=== PATIENT | female | born 1995 | race Caucasian/White ===

== ENCOUNTER 2018-03-10 15:04 | Outpatient (CLI) | payer OTHER ==
[2018-03-10 15:25] LABS: BASOPHILS % (AUTO) 0.3 %; BILIRUBIN,URINE NEGATIVE (NEGATIVE); CLARITY,URINE CLEAR (CLEAR); EOSINOPHILS % (AUTO) 0.4 %; GLUCOSE, URINE (UA) NEGATIVE (NEGATIVE); HGB - HEMOGLOBIN 11.4 g/dL (12.0-16.0); KETONES,URINE (UA) NEGATIVE (NEGATIVE); LEUKOCYTE ESTERASE, URINE NEGATIVE (NEGATIVE); LYMPHOCYTES % (AUTO) 22.8 %; MEAN CORPUSCULAR HEMOGLOBIN 31.6 pg (27.0-31.0); MEAN CORPUSCULAR VOLUME 90.2 fL (81.0-99.0); MEAN PLATELET VOLUME 6.7 fL (7.9-10.8); MONOCYTES # (AUTO) 0.4 10^3/uL (0.0-1.0); MONOCYTES % (AUTO) 4.7 %; NEUTROPHILS # (AUTO) 6.3 10^3/uL (1.5-6.6); NEUTROPHILS % (AUTO) 71.8 %; NITRITE,URINE NEGATIVE (NEGATIVE); OCCULT BLOOD,URINE NEGATIVE (NEGATIVE); PH,URINE 6.5 PH (5.0-7.5); PLT - PLATELET COUNT 369 10^3/uL (130-450); PROTEIN,URINE NEGATIVE (NEGATIVE); RED BLOOD COUNT 3.61 10^6/uL (4.20-5.40); RED CELL DISTRIBUTION WIDTH 13.8 % (12.0-15.0); UROBILINOGEN,URINE 0.2 (NORMAL) E.U./dL (NORMAL); WHITE BLOOD COUNT 8.7 x10^3/uL (4.8-10.8)
[2018-03-10 15:31] LABS: BACTERIA,URINE Rare /HPF (None Seen); SQUAMOUS EPITHELIAL CELL,UR RARE Squamous (<= Few)
[2018-03-10 15:38] LABS: CASTS, URINE None Seen /LPF
[2018-03-11 10:01] LABS: HEPATITIS B SURFACE ANTIGEN NON-REACTIVE (NON-REACTIVE)
[2018-03-11 10:03] LABS: HEPATITIS C ANTIBODY NON-REACTIVE (NON-REACTIVE)
[2018-03-11 13:28] LABS: HIV AG/AB 4TH GEN NON-REACTIVE (NON-REACTIVE)
== END 2018-03-10 15:05 | disposition home or self-care (01) ==
LOC: LAB 15:04
PROVIDERS: ATTEND Nurse Practitioner Obstetrics & Gynecology
DX: Z36.9 Encounter for antenatal screening, unspecified (principal)
CPT/HCPCS: 36415; 81001; 81599; 85025; 86762; 86803; 86850; 86900; 86901; 87340; 87389

== ENCOUNTER 2018-03-10 22:48 | Outpatient (CLI) | payer OTHER ==
--- NOTE | 2018-03-11 00:09 | Ultrasound Preliminary Report ---
Exam: US OB 14+ WEEKS IMPRESSION: 1. Single live intrauterine gestation is noted, measuring 19 weeks 2 days with ROB of 08/02/2018. 2. Size equals dates. 3. Detailed anatomic assessment was not performed on this targeted obstetric ultrasound. anatomical assessment ultrasound recommended at 20-22 weeks gestation, unless already performed. KOBY The call report notification system was initiated by Dr. Mauricio Newberry at 23:58 hrs on 03/10/18. The above findings were discussed with Dr. Isabel by Dr. Mauricio Newberry at 00:08 hrs on 03/11/18. SITE ID: [id number]
--- NOTE | 2018-03-11 00:56 | Ultrasound Report ---
EXAM: LIMITED OBSTETRICAL ULTRASOUND EXAM DATE: 03/10/2018 11:05 PM. CLINICAL HISTORY: Uterine size-date discrepancy, second trimester. COMPARISON: None. TECHNIQUE: Real-time sonographic evaluation of the fetus performed by the plasma table operator. Multiple repre sentative static images were saved for review. FINDINGS: LMP: 10/24/2017. Estimated gestational age: 19 weeks 4 days. Estimated due date: 07/31/2018. Single intrauterine gestation noted in cephalic orientation. Shadowing from the head obscures d etailed visualization of the cervix. As visualized, cervix measures 3.7 cm, appears closed. Fetus is cephalic orientation. Posterior placenta without evidence of abruption or previa. Detailed anatomic assessment is not performed at this time. Visualized anatomical structu res are without gross abnormality. Amniotic fluid index measures 12.5 cm, within normal limits. No significant maternal adnexal abnormality demonstrated in the visualized portions. BIOMETRIC DATA: Biparietal Diameter (BPD): 4.7 cm = 20 wks 1 day. Head Circumference (HC): 16.1 cm = 18 wks 6 days. Abdominal Circumference (AC): 13.1 cm = 18 wks 5 days. Femur Length (FL): 3.1 cm = 19 wks 4 days. Estimated Weight: 273 grams. IMPRESSION: 1. Single live intrauterine gestation is noted, measuring 19 weeks 2 days with a due date of 08/02/20 18. 2. Size equals dates. 3. Detailed anatomic assessment was not performed on this targeted obstetric ultrasound. anatomical assessment ultrasound recommended at 20-22 weeks gestation, unless already performed. KOBY The call report notification system was initiated by Dr. Mauricio Newberry at 23:58 hrs on 03/10/18. The above findings were discussed with Dr. Isabel by Dr. Mauricio Newberry at 00:08 hrs on 03/11/18. Referring Provider Line: [phone] SITE ID: [id number]
== END 2018-03-10 22:49 | disposition home or self-care (01) ==
LOC: DI 22:48
PROVIDERS: ATTEND Nurse Practitioner Obstetrics & Gynecology
DX: O26.842 Uterine size-date discrepancy, second trimester (principal); Z3A.19 19 weeks gestation of pregnancy; Z36.9 Encounter for antenatal screening, unspecified
CPT/HCPCS: 36415; 76805; 81001; 81599; 85025; 86592; 86762; 86803; 86850; 86900; 86901; 87340; 87389

== ENCOUNTER 2018-05-26 07:30 | Outpatient (CLI) | payer OTHER ==
[2018-05-26 09:21] LABS: HGB - HEMOGLOBIN 11.6 g/dL (12.0-16.0); MEAN CORPUSCULAR HGB CONC 33.5 g/dL (32.0-36.0); MEAN CORPUSCULAR VOLUME 92.5 fL (81.0-99.0); MEAN PLATELET VOLUME 6.8 fL (7.9-10.8); RED BLOOD COUNT 3.73 10^6/uL (4.20-5.40); RED CELL DISTRIBUTION WIDTH 13.2 % (12.0-15.0)
== END 2018-05-26 07:31 | disposition home or self-care (01) ==
LOC: LAB 07:30
PROVIDERS: ATTEND Registered Nurse
DX: Z34.82 Encounter for supervision of other normal pregnancy, second trimester (principal)
CPT/HCPCS: 36415; 82950; 85027; 86850

== ENCOUNTER 2018-06-08 12:40 | Outpatient (CLI) | payer OTHER | END 2018-06-08 12:41 | disposition home or self-care (01) | LOC: NS 12:40 | PROVIDERS: ATTEND Nurse Practitioner Obstetrics & Gynecology | DX: Z71.3 Dietary counseling and surveillance (principal); O24.410 Gestational diabetes mellitus in pregnancy, diet controlled | CPT/HCPCS: 97802 ==

== ENCOUNTER 2018-06-11 14:25 | Outpatient (CLI) | payer OTHER ==
--- NOTE | 2018-06-11 16:55 | Ultrasound Report ---
Procedure Date: 06/11/2018 Accession Number: [id number] / [id number] Procedure: US - OB F/U or Repeat CPT Code: FULL RESULT: EXAM: COMPLETE OBSTETRICAL ULTRASOUND. EXAM DATE: 06/11/2018 03:31 PM. CLINICAL HISTORY: Diabetes mellitus, assess growth and amniotic fluid index. COMPARISON: OB 14+ weeks 03/10/2018. TECHNIQUE: Real-time sonographic evaluation of the fetus performed by the facility service associate. Multiple medical customer service representative static images were saved for review. DATING: Established EGA 32 weeks 4 days with ROB 08/02/2018 based on ultrasound 03/10/2018. EGA 32 weeks 5 days with ROB 08/01/2018 based on the current ultrasound. GENERAL EVALUATION Johnson . Cardiac activity: 139 bpm. movement: Visualized. Presentation: Cephalic. Placenta: Posterior position. No evidence for previa. Umbilical cord: 3 vessel cord. Central placental cord origin. Amniotic fluid: Subjectively normal. MVP 3.8 cm. BIOMETRY Bi-Parietal Diameter (BPD): 8.3 cm, 33 weeks 2 days Head Circumference (HC): 29.4 cm, 32 weeks 3 days Abdominal Circumference (AC): 28.4 cm, 32 weeks 3 days Femur Length (FL): 6.4 cm, 32 weeks 5 days Estimated Weight: 2013 gm, 42 percentile . MATERNAL STRUCTURES Uterus: Unremarkable. Cervix: Long and closed. Transabdominal length approximate 3.5 cm. Right ovary/adnexa: Unremarkable. Left ovary/adnexa: Adnexal region is unremarkable. Ovary is not seen. Free fluid: None. IMPRESSION: 1. Johnson live intrauterine with gestational age 32 weeks 5 days based on current ultrasound. 2. Estimated weight is within expected limits for assigned dating. 3. Amniotic fluid is adequate. RADIA
== END 2018-06-11 14:26 | disposition home or self-care (01) ==
LOC: DI 14:25
PROVIDERS: ATTEND Nurse Practitioner Obstetrics & Gynecology
DX: O24.410 Gestational diabetes mellitus in pregnancy, diet controlled (principal); Z3A.32 32 weeks gestation of pregnancy
CPT/HCPCS: 76816

== ENCOUNTER 2018-06-18 16:09 | Outpatient (CLI) | payer OTHER ==
[2018-06-18 20:54] LABS: HB2 TOTAL 12.3 g/dL; HEMOGLOBIN A1C 0.41 g/dL; HEMOGLOBIN A1C % 5.2 % (4.6-6.2)
== END 2018-06-18 16:10 | disposition home or self-care (01) ==
LOC: LAB 16:09
PROVIDERS: ATTEND Registered Nurse
DX: O24.410 Gestational diabetes mellitus in pregnancy, diet controlled (principal)
CPT/HCPCS: 36415; 83036

== ENCOUNTER 2018-07-06 08:00 | Outpatient (CLI) | payer OTHER | END 2018-07-06 08:01 | LOC: LAB.R 08:00 | PROVIDERS: ATTEND Registered Nurse | DX: Z34.83 Encounter for supervision of other normal pregnancy, third trimester (principal) | CPT/HCPCS: 87081 ==

== ENCOUNTER 2018-07-23 10:04 | Outpatient (CLI) | payer OTHER ==
[2018-07-23 10:57] LABS: HB2 TOTAL 13.1 g/dL; HEMOGLOBIN A1C 0.42 g/dL; HEMOGLOBIN A1C % 5.1 % (4.6-6.2)
== END 2018-07-23 10:05 | disposition home or self-care (01) ==
LOC: LAB 10:04
PROVIDERS: ATTEND Registered Nurse
DX: O24.410 Gestational diabetes mellitus in pregnancy, diet controlled (principal)
CPT/HCPCS: 36415; 82947; 83036

== ENCOUNTER 2018-07-25 07:59 | Inpatient (IN) | payer OTHER ==
[2018-07-25] MEDS ORDERED: LIDOCAINE-MPF 2% 5 ML VIAL IM ONE (09:00)
[2018-07-25 09:18] LABS: RUPTURE OF MEMBRANES PLUS POSITIVE (NEGATIVE)
--- NOTE | 2018-07-25 09:54 | HISTORY & PHYSICAL EXAMINATION ---
Admit History - Instructions Lummi/Slash: -Left hand click circles element as positive or present. -Right hand click slashes element as negative or not present. - Visit Reason Visit Reason: Membranes rupture - : 1 Parity: 0 Premature: 0 Ectopic: 0 : 0 Care: positive: [facility] Risk/History: positive: None Complications This : positive: Gestational diabetes Smoking Status: Never smoker - Mother's Labs Mother's Blood Type: positive: B Mother's RH: positive: Positive GBS: positive: Group B Step Negative Rubella Status: positive: Immune Review of Systems - Constitutional Constitutional: denies: Fatigue, Fever, Chills, Malaise - Eyes Eyes: denies: Pain, Irritation, Blurred vision, Spots in vision, Field loss, Vision loss - Cardiovascular Cariovascular: denies: Irregular heart rate, Palpitations, Chest pain, Edema - Respiratory Respiratory: denies: Cough, Wheezing - Gastrointestinal Gastrointestinal: denies: Abdominal pain, Constipation, Diarrhea, Nausea, Vomiting - Genitourinary Genitourinary: denies: Dysuria, Frequency, Urgency - Integumentary Integumentary: denies: Rash, Pruritis - Neurological Neurological: denies: Headache - Psychiatric Psychiatric: denies: Depression, Anxiety Physical - Abdominal Exam Vital Signs: Temp Pulse Resp BP Pulse Ox 36.8 C 135 H 18 128/84 H 100 07/25/18 08:25 07/25/18 08:25 07/25/18 08:25 07/25/18 08:33 07/25/18 08:25 Uterine Resting Tone: positive: Soft - Monitoring Strip Review: positive: Category I - Presentation Presentation: positive: Vertex - Vaginal Exam Membranes: positive: Membranes ruptured Dilation (in cm): 2 Effacement (%): 70 Station: positive: -2 Cervical Position: positive: Midposition - Speculum Exam Speculum Exam Performed: positive: No Findings: positive: Gross leak Plan for Labor - Plan For Labor I expect patient to be DC'd or transferred within 96 hours.: Yes Plan for Labor: HPI: Óscar is a 23yo @ 38.6wks gestation by 19.4wk U/S. She is a patient of [facility] who presented to [facility] on 07/25/2018 with c/o large leakage of fluid and occasional contractions. Her has been complicated by gestational diabetes for which she has remained diet controlled throughout the duration of the . She has had very good control of her blood glucose values. Dating criteria: 1.) LMP unsure 2.) Initial ultrasound 03/11/2018 dates @ 19w4d 3.) Serial exams 21-38wks - agree OB Hx: G1: current; GDMA1 PMHx: no significant Social Hx: to [place]. Never smoker. No ETOH or IVDA Family Hx: Skin cancer - maternal grandmother, maternal aunt Gynecologic Hx: Menarche age 10 Regular menstruation q 29-31 days No Hx STDs or SCREW REMOVER surgeries No Hx abnormal paps. Last pap 03/10/2018 neg, GC/CT neg labs: B pos; antibody neg Hgb 11.4; Hct 32.5; 369 Rubella immune HIV non-reactive Hep B non-reactive Hep C non-reactive RPR non-reactive GC/CT neg 28 week labs: 1 hour GTT 211 3 hour GTT Hgb 11.6 Antibody neg 06/19/2018 Hgb A1C 5.2 GBS negative Tdap 05/04/2018 Influenza 07/10/2018 Ultrasounds: 03/11/2018 initial dating ultrasound reveals single, viable intrauterine at 19w4d and give and ROB of 08/02/2018 06/16/2018 growth U/S WNL. Cephalic presentation, 32.4wks gestation which is c/w established dating. Posterior placenta, no previa. 3VC. 2013 grams. 42%tile. ANDREE WNL - MVP 3.8. Physical Exam: A&O x 4 Heart RRR w/o M/G/R Lungs CTAB Abdomen gravid, soft, nontender EFW 7lbs SVE 2/75/-2, vertex. Grossly ruptured membranes Contractions palpate moderate every 2-3 min lasting 60-90 seconds with soft resting tone FHR baseline 140s, moderate variability, + accels, no decels Bilateral LE's trace edema Assessment: 23yo @ 38.6wks gestation by 19wk U/S GDMA1 - well controlled GBS neg Plan: Admit to L&D for management Continuous monitoring N2O or Epidural per maternal request Encouraged ambulation and frequent position changes Activity and nutrition as indicated
[2018-07-25] MEDS ORDERED: ONDANSETRON 4 MG/2 ML VIAL IVP PRN ×2 (10:45→14:57)
[2018-07-25] MEDS ORDERED: fentaNYL 100 MCG/2 ML VIAL IVP PRN (10:45)
--- NOTE | 2018-07-25 11:06 | PROVIDER PROGRESS NOTE ---
Labor Progress Note - Uterine Monitoring Uterine Monitoring Mode: positive: External toco Contraction Frequency (min/apart): 2-3 Contraction Intensity: positive: Moderate Uterine Resting Tone: positive: Soft - Monitoring Monitor Mode: positive: External ultrasound Heart Rate Baseline: 145 Heart Rate Variability: positive: Moderate (6-25 bmp) Accelerations: positive: Present, 15x15 Decelerations: positive: None Strip Review: positive: Category I - Vaginal Exam Dilation (in cm): 2 Effacement (%): 75 Station: -2 Cervical Position: Midposition - Labor Progress Note Labor Progress Note/Additional Text: S: Walking around the room and swaying with contractions. She is coping well and her is supportive. She feels she may desire to get in the jacuzzi sometime soon. Planning an epidural at some point but desires to try other options for pain management at this time. O: BP 128/84, HR 135, T 36.8, RR 18 Contractions palpate moderate every 2-3 minutes lasting 60-100 seconds with soft resting tone. FHR baseline 150, moderate variability, + accels, no decels SVE deferred A: 23yo @ 38.6wks gestation by 19wk U/S GDMA1 SROM x4 hours Early labor P: Continue expectant management Encouraged ambulation and frequent position changes N2O and epidural per patient request. Dr. Isabel, attending physician, aware of patient status and agrees with above plan. Pt, , and labor RN agree to above plan and deny further questions or concerns at this time. Reevalute in 4 hours or sooner PRN. Anticipate spontaneous vaginal delivery.
[2018-07-25 11:52] LABS: BASOPHILS # (AUTO) 0.1 10^3/uL (0.0-0.1); BASOPHILS % (AUTO) 1.5 %; EOSINOPHILS % (AUTO) 0.1 %; LYMPHOCYTES # (AUTO) 1.8 10^3/uL (1.5-3.5); LYMPHOCYTES % (AUTO) 20.2 %; MEAN CORPUSCULAR HGB CONC 35.1 g/dL (32.0-36.0); MEAN CORPUSCULAR VOLUME 88.3 fL (81.0-99.0); MEAN PLATELET VOLUME 7.7 fL (7.9-10.8); MONOCYTES # (AUTO) 0.3 10^3/uL (0.0-1.0); MONOCYTES % (AUTO) 3.1 %; NEUTROPHILS # (AUTO) 6.6 10^3/uL (1.5-6.6); NEUTROPHILS % (AUTO) 75.1 %; PLT - PLATELET COUNT 356 10^3/uL (130-450); RED BLOOD COUNT 3.86 10^6/uL (4.20-5.40); RED CELL DISTRIBUTION WIDTH 13.5 % (12.0-15.0); WHITE BLOOD COUNT 8.8 x10^3/uL (4.8-10.8)
[2018-07-25] MEDS: SODIUM CHLORIDE FLUSH 0.9% 10 ML SYRINGE IVP PRN ×2 (13:07→18:38)
[2018-07-25] MEDS: LACTATED RINGERS 1,000 ML IV SCH ×2 (13:08→18:36)
[2018-07-25] MEDS ORDERED: fent/BUPIV 2 MCG/0.125% 250 ML EP ONE (14:08)
--- NOTE | 2018-07-25 14:56 | ANESTHESIA ---
Pre-Anesthesia VS, & Labs - Diagnosis Term labor, IUP - Procedure FRAN placement Vital Signs: Temp Pulse Resp BP Pulse Ox 36.8 C 135 H 18 128/84 H 100 07/25/18 08:25 07/25/18 08:25 07/25/18 08:25 07/25/18 08:33 07/25/18 08:25 Height 5 ft 1 in Weight (kg) 75.296 kg - NPO Last Fluid Intake: fluids t/o morning - Is Patient ?: Yes - Lab Results Current Lab Results: Laboratory Tests 07/25/18 11:20: WBC 8.8, RBC 3.86 L, Hgb 12.0, Hct 34.1 L, MCV 88.3, MCH 31.0, MCHC 35.1, RDW 13.5, Plt Count 356, MPV 7.7 L, Neut # (Auto) 6.6, Lymph # (Auto) 1.8, [place] # (Auto) 0.3, Eos # (Auto) 0.0, Baso # (Auto) 0.1, Absolute Nucleated RBC 0.00, Nucleated RBC % 0.1 Lab results reviewed: Yes Fish Bones: 07/25/18 11:20 Home Medications and Allergies Active Medications Fentanyl (Fentanyl) 50 mcg IVP Q1H PRN PRN Reason: PAIN Last Admin: 07/25/18 13:07 Dose: 50 mcg Lactated Ringer's (Lr) 1,000 mls @ 150 mls/hr IV .Q6H40M [facility] Last Admin: 07/25/18 13:08 Dose: 999 mls/hr Ondansetron HCl (Zofran Inj) 4 mg IVP Q4H PRN PRN Reason: Nausea / Vomiting Sodium Chloride (Normal Saline Flush 0.9%) 10 ml IVP PRN PRN PRN Reason: NEEDED PER PROVIDER ORDERS Last Admin: 07/25/18 13:07 Dose: 10 ml Sodium Chloride (Normal Saline Flush 0.9%) 10 ml IVP 0100,0900,1700 [facility] Anes History & Medical History - Anesthetic History Anesthesia Complications: reports: No previous complications Family history of Anesthesia Complications: Denies Family history of Malignant Hyperthermia: Denies - Medical History Cardiovascular: reports: None Pulmonary: reports: None Neuro: reports: None Endocrine/Autoimmune: reports: None Smoking Status: Never smoker - Obstetrical History : 1 Parity: 0 Events: positive: None Complications: positive: Gestational diabetes Exam General: Alert, Oriented x3, Cooperative, No acute distress Dental: WNL Mouth Openin Fingerbreadth Neck Mobility: Normal Mallampati classification: II Thyromental Distance: 4-6 cm Respiratory: Lungs clear Cardiovascular: Regular rate, Normal S1, Normal S2, No murmurs Mental/Cognitive Status: Alert/Oriented X3 Cognitive Status: Within normal limits Plan Anesthesia Type: Epidural Consent for Procedure(s) Verified and Reviewed: Yes Code Status: Attempt Resuscitation ASA classification: 2-Mild systemic disease Is this case an emergency?: No
[2018-07-25] MEDS ORDERED: NALOXONE 0.4 MG/ML VIAL IVP PRN (14:57)
[2018-07-25] MEDS ORDERED: NALBUPHINE 10 MG/ML AMP IVP PRN (14:57)
[2018-07-25] MEDS ORDERED: METOCLOPRAMIDE 10 MG/2 ML VIAL IVP PRN (14:57)
[2018-07-25] MEDS ORDERED: ePHEDrine 50 MG/ML VIAL IVP PRN (14:57)
[2018-07-25] MEDS ORDERED: diphenhydrAMINE INJ 50 MG/ML VIAL IVP PRN (14:57)
[2018-07-25] MEDS ORDERED: fent/BUPIV 2 MCG/0.125% 250 ML EP PRN (14:57)
[2018-07-25] MEDS ORDERED: LACTATED RINGERS 500 ML IV ONE (14:57)
[2018-07-25] MEDS: OXYTOCIN/SODIUM CHLORIDE 500 ML IV SCH (18:37)
--- NOTE | 2018-07-25 18:40 | PROVIDER PROGRESS NOTE ---
Labor Progress Note - Uterine Monitoring Uterine Monitoring Mode: positive: External toco Contraction Frequency (min/apart): 2-8 Contraction Intensity: positive: Moderate to strong Uterine Resting Tone: positive: Soft - Monitoring Monitor Mode: positive: External ultrasound Heart Rate Baseline: 145 Heart Rate Variability: positive: Moderate (6-25 bmp) Accelerations: positive: Present, 15x15 Decelerations: positive: None Strip Review: positive: Category I - Vaginal Exam Dilation (in cm): 5 Effacement (%): 100 Station: 0 Cervical Position: Midposition - Labor Progress Note Labor Progress Note/Additional Text: S: Pt comfortable in bed with epidural. [place] supportive at the bedside. She is anxious to meet her baby. Feels she will be able to sleep for a couple of hours. Mood is good. O: BP 133/85, HR 66, RR18 Contractions palpate moderate every 2-8 minutes with soft resting tone FHR baseline 145, moderate variability, + accels, no decels SVE 5/100/0, vertex A: 23yo @ 38.6wks gestation GDMA1 SROM x 11 hours GBS negative P: Initiate pitocin and titrate per protocol Continuous monitoring Encouraged position changes on peanut ball. Anticipate spontaneous vaginal delivery.
[2018-07-25] MEDS ORDERED: LIDOCAINE 1% 50 ML MDV TD ONE (23:00)
[2018-07-25] MEDS ORDERED: LIDOCAINE 1% 2 ML VIAL SUBQ ONE (23:00)
[2018-07-26] MEDS ORDERED: HYDROCORTISONE/PRAMOXINE 10 GM PR PRN (00:04)
[2018-07-26] MEDS ORDERED: OXYTOCIN/SODIUM CHLORIDE 250 ML IV ONE (00:04)
--- NOTE | 2018-07-26 00:54 | DELIVERY NOTE ---
Delivery Note - Labor Labor: positive: Augmented by oxytocin - Delivery Method Delivery Method: positive: Spontaneous vaginal delivery - Presentation Presentation: positive: Vertex, JOAN - left occiput anterior - Nuchal Cord Nuchal Cord: positive: None - Amniotic Fluid Description Amniotic Fluid Description: positive: Clear - Episiotomy Type Episiotomy Type: positive: None - Laceration Laceration: positive: 1st degree - Delivery Outcome Delivery Outcome: positive: Livebirth - [place]: positive: Placed in direct skin contact with mother, Stimulated, Warmed, [place] used sex: positive: Male - Cord Cord: positive: 3 vessels - Placenta Placenta: positive: Intact, Spontaneous - Post Delivery Events Post Delivery Events: positive: No post delivery events - Delivery Comments (Free Text/Narrative) Delivery Comments (Free Text/Narrative): Labor: This 23yo @ 38.6 wks gestation who presented on 07/24/2018 with c/o SROM and intermittent uterine contractions. Upon arrival cervix was noted to be 2/75/-2 and vertex, with grossly ruptured membranes. Amniotic fluid was noted to be a moderate amount of clear fluid. ROM+ was positive. FHR demonstrated a baseline 150 in a Category I pattern throughout labor. Epidural placed upon maternal request. Pt was augmented with Pitocin for a max infusion rate of 3mU/min. The patient progressed to c/c/+1 @ 2211. : Normal of viable male infant named Daniel at 2250 on 07/25/2018. No nuchal cord. 's were 8/9 at 1 and 5 min respectively. The was placed on maternal abdomen, stimulated, dried, and placed skin to skin. The umbilical cord was allowed to stop pulsating at which time it was doubly clamped by CNM and cut by FOB. Cord blood was obtained. Placenta delivered spontaneously and intact at 2254. Pitocin administered via IV for hemostasis. EBL 450mL. Fourth stage: Dr. Isabel, surgeon assistant physician, called to the bedside for assistance of the fourth stage secondary to another requiring CNM periodicals library assistant. Per jasmyne trevino RN, Dr. Isabel repaired a 1st degree perineal laceration and left labial laceration in the standard fashion under sterile conditions. initiated. Family bonding well. Both mother and baby were left in stable condition.
[2018-07-26] MEDS: WITCH HAZEL/GLYCERIN 1 EACH MED..PAD TOP PRN (01:09)
[2018-07-26] MEDS: ACETAMINOPHEN 500 MG TABLET PO SCH ×3 (01:10→18:14)
[2018-07-26] MEDS: IBUPROFEN 800 MG TABLET PO SCH ×4 (01:10→22:55)
[2018-07-26] MEDS ORDERED: LIDOCAINE 1% 50 ML MDV ONE (03:13)
[2018-07-26] MEDS: SODIUM CHLORIDE FLUSH 0.9% 10 ML SYRINGE IVP SCH ×2 (05:02→05:06)
[2018-07-26] MEDS: LACTATED RINGERS 1,000 ML IV SCH (05:05)
--- NOTE | 2018-07-26 09:57 | PROVIDER PROGRESS NOTE ---
Subjective - Subjective Subjective: S: Bonding well with baby. without difficulty. Pain well controlled with ibuprofen and tylenol. Some muscle aches she attributes to pushing. Perineum slightly sore but pt is moving well and has been up to the restroom multiple times. She is tired but her mood is good and both she and her express they are feeling well and they deny questions or concerns at thi s time. O: Hgb on admission 12.0 BP 114/71, HR 70, RR 17, T 36.8 Heart RRR w/o M/G/R, lungs CTAB, perineum intact, light lochia rubra, repair with mild edema. Bilateral LE's no edema. A: 23yo -->P1 PPD#1 s/p TSVD of viable male named Daniel GDMA1 1st degree perineal laceration - intact P: Continue routine care and medications. support PRN. Plan for discharge home tomorrow. Pt denies further questions or concerns at this time. Objective - Vital Signs/Intake & Output Vital Signs: Vital Signs x48h Temp Pulse Resp BP Pulse Ox 07/26/18 08:34 36.8 C 70 17 114/71 96 07/26/18 04:00 36.8 C 66 18 107/69 100 07/26/18 02:00 36.8 C 63 16 107/64 100 Intake & Output: Intake & Output 07/23/18 07/24/18 07/25/18 07/26/18 23:59 23:59 23:59 23:59 Intake Total 1000 1500 Output Total 350 1200 Balance 650 300 - Lab Results Fish Bones: 07/25/18 11:20 Other Labs: Lab Results x24hrs 07/25/18 Range/Units 11:20 WBC 8.8 (4.8-10.8) x10^3/uL RBC 3.86 L (4.20-5.40) 10^6/uL Hgb 12.0 (12.0-16.0) g/dL Hct 34.1 L (37.0-47.0) % MCV 88.3 (81.0-99.0) fL MCH 31.0 (27.0-31.0) pg MCHC 35.1 (32.0-36.0) g/dL RDW 13.5 (12.0-15.0) % Plt Count 356 (130-450) 10^3/uL MPV 7.7 L (7.9-10.8) fL Neut # (Auto) 6.6 (1.5-6.6) 10^3/uL Lymph # (Auto) 1.8 (1.5-3.5) 10^3/uL [place] # (Auto) 0.3 (0.0-1.0) 10^3/uL Eos # (Auto) 0.0 (0.0-0.7) 10^3/uL Baso # (Auto) 0.1 (0.0-0.1) 10^3/uL Absolute Nucleated RBC 0.00 x10^3/uL Nucleated RBC % 0.1 /100WBC
[2018-07-27] MEDS: ACETAMINOPHEN 500 MG TABLET PO SCH ×3 (02:07→18:06)
[2018-07-27] MEDS: IBUPROFEN 800 MG TABLET PO SCH ×3 (05:03→18:06)
[2018-07-27] MEDS: LACTATED RINGERS 1,000 ML IV SCH ×3 (10:27→10:30)
[2018-07-27] MEDS: SODIUM CHLORIDE FLUSH 0.9% 10 ML SYRINGE IVP SCH ×4 (10:27→10:30)
[2018-07-27] MEDS: OXYTOCIN/SODIUM CHLORIDE 500 ML IV SCH ×2 (10:28→10:30)
--- NOTE | 2018-07-27 17:39 | Discharge Plan ---
Discharge Plan Disposition: 01 Home, Self Care Condition: Good Diet: Regular Activity Restrictions: No Restrictions Shower Restrictions: No Driving Restrictions: No Weight Bearing: Full Weight No Smoking: If you smoke, Please STOP! Call for help. Follow-up with: Erin Velasco CNM, ARNP [Provider Admit Priv/Credential] -
--- NOTE | 2018-07-27 17:42 | PROVIDER PROGRESS NOTE ---
Subjective - Subjective Subjective: FINAL PROGRESS NOTE: S: Bonding well with baby. without difficulty. Bleeding decreased and is light. Pain is well controlled with ibuprofen and tylenol. They desire to go home today. supportive at the bedside. O: BP 124/74, HR 80, RR18 T 36.6 Heart RRR w/o M/G/R. Lungs CTAB. Abdomen soft, nontender with fundus firm at U- 1. Perineum intact and repair with mild edema. Light lochia rubra. Bilateral LE's no edema. A: 23yo -->P1 PPD#1 s/p TSVD of viable male named Daniel First degree perineal laceration - intact GDMA1 P: Discharge home today on PPD#1. Reviewed self care and warning s/sx. Planning depo provera vs IUD for contraception. Advised ibuprofen and tylenol OTC for pain management. Encouraged continuation of PNV while . F/u at [facility] in 1 week for support visit and in 3 weeks for routine pp visit. Pt and verbalized understanding and agree with above plan. They deny further questions or concerns at this time. Objective - Vital Signs/Intake & Output Vital Signs: Vital Signs x48h Temp Pulse Resp BP Pulse Ox 07/27/18 10:00 36.6 C 80 18 124/74 98 Intake & Output: Intake & Output 07/24/18 07/25/18 07/26/18 07/27/18 23:59 23:59 23:59 23:59 Intake Total 1000 2250 Output Total 350 1550 Balance 650 700 - Lab Results Fish Bones: 07/25/18 11:20
[2018-07-27] MEDS: WITCH HAZEL/GLYCERIN 1 EACH MED..PAD TOP PRN (18:06)
[2018-07-27 18:07] VITALS: BP 117/80
--- NOTE | 2018-07-27 19:29 | Labor Flowsheet ---
Labor Flowsheet Datetime Report Generated by CPN: 07/27/2018 19:29 Datetime: 07/26/2018 08:25 VITAL SIGNS NBP Sys/Sherrie/Mean (mmHg): 114 : 71 : 81 Pulse: 72 LaborFlag: Labor Datetime: 07/26/2018 01:08 SpO2 (%): 100 Datetime: 07/25/2018 22:50 UTERINE ACTIVITY Monitor Mode: External Quality: Strong Pattern: Normal: <= 5 Contractions in 10 Minutes Resting Tone (Palpate): Relaxed Contraction Comments: Pushing contractions ASSESSMENT A Monitor Mode: External US FHR Baseline Rate : 150 Variability: Moderate 6-25 bpm Accelerations: 15X15 Decelerations: None Category: Category I Oxygen Method: Room Air Datetime: 07/25/2018 22:30 Comments: Poor tracing related to pushing; FHR heard in 160s Datetime: 07/25/2018 22:15 Frequency (min): 1.5-3 Duration (sec): 40-80 Datetime: 07/25/2018 22:13 STAGE 2 Pushing: No Urge to Push Pushing Position: Pushing with Contractions; Pushing Lithotomy Pushing Progress: Descent with Pushing Datetime: 07/25/2018 22:12 I/O Interventions: Straight Cath (ml) @ 600 Datetime: 07/25/2018 21:30 Respirations: 20 Temperature (C): 37.4 Datetime: 07/25/2018 21:18 COMMUNICATION Communication: Call/Page Placed to Provider Provider Notified (Name): A Rod, CNM Communication Comments: Provider notified that patient is 9cm; provider coming in Datetime: 07/25/2018 21:15 VAGINAL EXAM Dilatation (cm): 9.0 Effacement (%): 90 Station: 1 Exam by: A Bauch, RN Datetime: 07/25/2018 21:02 MEDICATIONS Pitocin (milliunits): Increased to @ 3 Datetime: 07/25/2018 20:55 Anesthesia Comments: Bolus by C Mccauley, DIRECTOR SYSTEMS Datetime: 07/25/2018 20:33 Notification Reason: Pain Datetime: 07/25/2018 19:00 Stage of : Labor PAIN Pain Scale: 0 Patient Position/Activity: Left Tilt; Semi-Fowlers Anesthesia Level Check: T10- Umbilicus Datetime: 07/25/2018 14:30 ANESTHESIA Anesthesia Plans: Epidural Anesthesia Interview: E Epidural Positioning: Sitting Epidural Procedure: Cath Placed; Test Dose; Loading Dose; Completed Epidural Procedure Other: Pump Started Datetime: 07/25/2018 14:05 Temperature Route: Oral Datetime: 07/25/2018 12:39 FHR Baseline Changes: No Baseline Change Pain Presence: Intermittent Pain Type: Cramping Pain Location: Abdomen Pain Coping: Talking Through Contractions; Breathing Through Contractions MATERNAL ASSESSMENT Nausea/Vomiting: Denies Datetime: 07/25/2018 11:00 PATIENT CARE IV/Blood Work: IV Started; Labs Drawn with IV Start; IV Saline Locked
--- NOTE | 2018-07-28 03:53 | DISCHARGE SUMMARY ---
Physician: STEFFANY Silva DATE OF ADMISSION: 07/25/2018 DATE OF DISCHARGE: 07/27/2018 DIAGNOSES ON ADMISSION 1. A 23-year-old G1, P0 at 38+6 weeks' gestation by 19-week ultrasound. 2. Spontaneous rupture membranes. 3. GBS negative. 4. Gestational diabetes mellitus A1 - diet controlled; well controlled. DIAGNOSES ON DISCHARGE 1. A 23-year-old G1, P1-0-0-1, status post spontaneous vaginal delivery on 07/25/2008. 2. First-degree perineal laceration intact. 3. Normal recovery. BRIEF HISTORY: This is a patient of [facility] who presented on 07/24/2018 with complaints of spontaneous rupture of membranes and intermittent uterine contractions. Upon arrival, her cervix was noted to be 2 cm dilated, 75% effaced, -2 station in the vertex position with grossly ruptured membranes. Epidural was placed upon maternal request. Patient was augmented with Pitocin for a max infusion rate of 3 milliunits. She progressed to spontaneously deliver a viable male , named Daniel at 2250 on 07/25/2018. Apgars were 8 and 9 at one and five minutes, respectively. EBL was [address] Isabel, on-call physician, called to the bedside for assistance of repair of the first-degree perineal laceration and left labial laceration secondary to an imminent on the unit requiring CNM assistance. The patient has been doing well in her course. She is ambulating and tolerating a regular diet. She is without difficulty. Her lochia is normal. Her pain is well controlled with oral medications. Her perineum is comfortable, and her bleeding is mild. She has been given precautions to call if she has any worsening fevers, chills, abdominal pain, increased vaginal bleeding, or foul smelling vaginal lochia. She intends to follow up with myself at [facility] in 1 week for support visit and in 3 weeks for routine visit. Both the patient and her verbalized understanding and agreed to the above plan. They deny further questions or concerns at this time. TD: 07/27/2018 17:53 AALIYAH
== END 2018-07-27 19:15 | disposition home or self-care (01) | DRG 807 ==
LOC: WFO 07:59 → FBP 08:00 → WFO 09:25 → FBP 09:26
PROVIDERS: ADMIT Nurse Practitioner Obstetrics & Gynecology; ATTEND Nurse Practitioner Obstetrics & Gynecology
PROC: 10E0XZZ Delivery of Products of Conception, External Approach (ICD-10-PCS; principal; 2018-07-26)
PROC: 0HQ9XZZ Repair Perineum Skin, External Approach (ICD-10-PCS; 2018-07-26)
DX: O24.420 Gestational diabetes mellitus in childbirth, diet controlled (principal); Z37.0 Single live birth; O70.0 First degree perineal laceration during delivery; Z3A.38 38 weeks gestation of pregnancy
CPT/HCPCS: 84112; 85025; 99212